=== PATIENT | male | born 1965 | race Hispanic/Latino ===

== ENCOUNTER 2020-11-04 01:33 | Inpatient (IN) | payer BC ==
[2020-11-04 02:59] LABS: Basophils # (Auto) 0.1 K/mm3 (0.0-0.1); Basophils % (Auto) 0.9 % (0.0-1.8); Eosinophils # (Auto) 0.1 K/mm3 (0.0-0.4); Eosinophils % (Auto) 0.6 % (0.0-4.3); Hematocrit 46.1 % (35.5-45.6); Hemoglobin 15.1 gm/dl (11.8-15.2); Lymphocytes # (Auto) 1.8 K/mm3 (1.2-5.4); Lymphocytes % (Auto) 21.3 % (13.4-35.0); Mean Corpuscular HGB Conc 33 % (32-34); Mean Corpuscular Volume 90 fl (84-94); Monocytes # (Auto) 0.9 K/mm3 (0.0-0.8); Monocytes % (Auto) 10.5 % (0.0-7.3); Platelet Count 422 K/mm3 (140-440); Red Blood Count 5.12 M/mm3 (3.65-5.03); Red Cell Distribution Width 15.2 % (13.2-15.2)
[2020-11-04 03:18] LABS: Alanine Aminotransferase 151 units/L (7-56); BUN/Creatinine Ratio 21; Blood Urea Nitrogen 25 mg/dL (9-20); Calcium 9.2 mg/dL (8.4-10.2); Hemolysis Index 6
[2020-11-04 03:38] LABS: Chol/HDL Ratio 3.81 %; HDL Cholesterol 33 mg/dL (40-59); LDL Cholesterol,Direct 84 mg/dL (50-130)
--- NOTE | 2020-11-04 03:40 | XRay Report ---
CHEST 2 VIEWS INDICATION / CLINICAL INFORMATION: LUIGI. Dyspnea FINDINGS: SUPPORT DEVICES: None. HEART / MEDIASTINUM: Mild cardiomegaly. LUNGS / PLEURA: No significant pulmonary or pleural abnormality. No pneumothorax. ADDITIONAL FINDINGS: No significant additional findings. IMPRESSION: Mild cardiomegaly Signer Name: Krunal Magallon MD Signed: 11/04/2020 3:36 AM Workstation Name: [id number]
--- NOTE | 2020-11-04 04:30 | Emergency Department Report ---
ED Shortness of Breath HPI - General Chief Complaint: Dyspnea/Respdistress Stated Complaint: HIGH BP TROUBLE BREATHING SLEEPING Time Seen by Provider: 11/04/20 04:10 Source: patient Mode of arrival: Ambulatory Limitations: No Limitations - History of Present Illness Initial Comments: Patient is a 55-year-old male who presents emergency room with complaints of shortness of breath. Patient states that shortness of breath started but was tolerable. Patient states last 3 days the symptoms have become severe. Patient states he had minimal dyspnea on exertion. Patient states he is unable to walk very far without getting out of breath. Patient denies chest pain. Patient denies headache. Patient states he has high blood pressure. Patient states he recently started metoprolol but did like the side effect so he stopped it. Patient states his blood pressure is extremely high. Patient states he takes blood pressure at home. Patient states blood pressure at home was systolic 200 and diastolic 120. Patient denies fever and chills. Patient denies nausea vomiting. Patient denies blurry vision. Patient denies recent travel. Patient denies recent international travel. Patient denies exposure to the novel coronavirus. Patient denies sick contacts. Patient denies fever and chills. Patient denies cough. Patient denies diarrhea. Patient denies coming in contact with anybody with symptoms of the novel coronavirus. Complaint: shortness of breath -: Sudden, week(s) Severity: severe Consistency: constant Improves With: rest Worsens With: exertion Treatments Prior to Arrival: none - Related Data Home Oxygen Therapy: No Allergies Allergy/AdvReac Type Severity Reaction Status Date / Time No Known Allergies Allergy Verified 11/04/20 04:39 ED Review of Systems ROS: Stated complaint: HIGH BP TROUBLE BREATHING SLEEPING Other details as noted in HPI Constitutional: denies: chills, fever Eyes: denies: eye pain, eye discharge, vision change ENT: denies: ear pain, throat pain Respiratory: see HPI, shortness of breath. denies: cough, wheezing Cardiovascular: as per HPI, dyspnea on exertion. denies: chest pain, palpitations Endocrine: no symptoms reported Gastrointestinal: denies: abdominal pain, nausea, diarrhea Genitourinary: denies: urgency, dysuria Musculoskeletal: denies: back pain, joint swelling, arthralgia Skin: denies: rash, lesions Neurological: denies: headache, weakness, paresthesias Psychiatric: denies: anxiety, depression Hematological/Lymphatic: denies: easy bleeding, easy bruising ED Past Medical Hx - Past Medical History Previous Medical History?: Yes Hx Hypertension: Yes Hx Diabetes: Yes Additional medical history: high cholesterol - Surgical History Past Surgical History?: Yes Hx Appendectomy: Yes Additional Surgical History: tonsils - Family History Family history: no significant - Social History Smoking Status: Never Smoker Substance Use Type: None ED Physical Exam - General Limitations: No Limitations General appearance: alert, in no apparent distress - Head Head exam: Present: atraumatic, normocephalic - Eye Eye exam: Present: normal appearance - ENT ENT exam: Present: mucous membranes moist - Neck Neck exam: Present: normal inspection - Respiratory Respiratory exam: Present: normal lung sounds bilaterally. Absent: respiratory distress, wheezes, rales - Cardiovascular Cardiovascular Exam: Present: regular rate, normal rhythm. Absent: systolic murmur, diastolic murmur, rubs, gallop - GI/Abdominal GI/Abdominal exam: Present: soft, normal bowel sounds - Rectal Rectal exam: Present: deferred - Extremities Exam Extremities exam: Present: normal inspection - Back Exam Back exam: Present: normal inspection - Neurological Exam Neurological exam: Present: alert, oriented X3 - Psychiatric Psychiatric exam: Present: normal affect, normal mood - Skin Skin exam: Present: warm, dry, intact, normal color. Absent: rash ED Course Vital Signs 11/04/20 11/04/20 11/04/20 02:18 04:44 04:50 Temperature 98.0 F Pulse Rate 119 H 116 H Respiratory 20 19 Rate Blood Pressure 206/158 O2 Sat by Pulse 96 99 99 Oximetry 11/04/20 11/04/20 05:00 05:21 Temperature Pulse Rate 110 H 110 H Respiratory 31 H Rate Blood Pressure 195/150 195/150 O2 Sat by Pulse 100 Oximetry - Reevaluation(s) Reevaluation #1: I discussed all results with patient. I discussed plan of care with patient. Patient agrees with plan of care and admission. Patient to be admitted to the hospitalist service. 11/04/20 04:37 Reevaluation #2: Heparin drip ordered. 11/04/20 04:43 Reevaluation #3: Patient's blood pressure is significantly elevated. Patient will be given 5 of Lopressor. 11/04/20 05:13 Reevaluation #4: Patient's blood pressure has improved. 11/04/20 05:52 - Consultations Consultation #1: Hospitalist consulted for admission. Hospitalist to admit patient. 11/04/20 04:37 ED Medical Decision Making - Lab Data Result diagrams: 11/04/20 02:23 11/04/20 02:23 - EKG Data -: EKG Interpreted by Me EKG shows normal: sinus rhythm, axis, intervals, QRS complexes, ST-T waves Rate: tachycardia - EKG Data Interpretation: LVH - Radiology Data Radiology results: report reviewed, image reviewed interpreted by me: Chest x-ray: No pneumonia, no pneumothorax, no foreign body, no osseous findings, no acute findings. Cardiomegaly noted. - Medical Decision Making Patient is 55-year-old male presents emergency room with complaints of shortness of breath initially on exertion. Patient found to have extremely elevated blood pressure consistent with hypertensive urgency. Patient had a chest x-ray which shows cardiomegaly. Patient had an EKG which shows sinus tach and LVH normal ST segment. I personally reviewed the EKG and chest x-ray. Patient had labs done which were essentially unremarkable except for elevated troponin. Due to elevated troponin, the patient was started on heparin protocol and heparin drip. Patient also given aspirin. Patient admitted to the hospital service with patient. Critical care time documented due to the multiple reassessments, prolonged time at the bedside, interpretation of diagnostics and labs. - Differential Diagnosis ACS, shortness of breath, CHF, pneumonia, elevated blood pressure Critical Care Time: Yes Critical care time in (mins) excluding proc time.: 35 Critical care attestation.: If time is entered above; I have spent that time in minutes in the direct care of this critically ill patient, excluding procedure time. Critical Care Time: 35 minutes ED Disposition Clinical Impression: Shortness of breath, Dyspnea on exertion, Elevated troponin, NSTEMI (non-ST elevated myocardial infarction), Hypertensive emergency Disposition: 09 ADMITTED INPATIENT Is pt being admited?: Yes Does the pt Need Aspirin: No Condition: Critical Instructions: Hypertension (ED) Referrals: KYLAH CLAYTON MD [Primary Care Provider] - 3-5 Days Time of Disposition: 04:43
[2020-11-04] MEDS ORDERED: HEPARIN 10,000 UNITS/10 ML VIAL IV ONE (04:35)
[2020-11-04] MEDS ORDERED: ASPIRIN 325 MG TAB PO ONE (04:36)
[2020-11-04] MEDS ORDERED: HEPARIN/ 0.45% NACL DRIP 25,000 UNIT/500 ML BAG IV SCH (05:00)
[2020-11-04] MEDS ORDERED: METOPROLOL TARTRATE 5 MG/5 ML INJ IV ONE (05:13)
[2020-11-04] MEDS ORDERED: ACETAMINOPHEN 325 MG TAB PO PRN (05:29)
[2020-11-04] MEDS ORDERED: ONDANSETRON 4 MG/2 ML INJ IV PRN (05:29)
[2020-11-04] MEDS ORDERED: ALUM-MAG HYDROXIDE-SIMETHICONE 200-200-20MG/5ML ORAL LIQD 30 ML PO PRN (05:29)
[2020-11-04] MEDS ORDERED: MORPHINE 4 MG/1 ML INJ IV PRN (05:29)
[2020-11-04] MEDS ORDERED: SENNOSIDES 8.6 MG TAB PO PRN (05:29)
[2020-11-04] MEDS ORDERED: METOCLOPRAMIDE 10 MG/2 ML INJ IV PRN (05:29)
[2020-11-04] MEDS ORDERED: MAGNESIUM HYDROXIDE (MOM) ORAL LIQD UDC PO PRN (05:29)
[2020-11-04] MEDS ORDERED: IBUPROFEN 600 MG TAB PO PRN (05:29)
[2020-11-04] MEDS ORDERED: oxyCODONE /ACETAMINOPHEN 5-325MG TAB PO PRN (05:29)
[2020-11-04] MEDS ORDERED: NALOXONE 0.4 MG/1 ML INJ IV PRN (05:29)
[2020-11-04] MEDS ORDERED: traZODone 50 MG TAB PO PRN (05:40)
[2020-11-04 05:48] LABS: INR 1.05 (0.87-1.13)
--- NOTE | 2020-11-04 05:48 | History and Physical Report ---
History of Present Illness Date of examination: 11/04/20 Date of admission: 11/04/20 Chief complaint: shortness of breath History of present illness: Patient is patient seen in ED at bedside. Patient is a 55-year-old male he presents to emergency room with chief complaint of shortness of breath. He said the shortness of breath has been ongoing. He reported a history of hypertension but he admits that he has not been compliant with his medication. He said when he checked his blood pressure was not 200 systolic. His shortness of breath has worsened then he decided to come to the hospital. Patient states last 3 days the symptoms have become severe. Patient states he had minimal dyspnea on exertion. Patient states he is unable to walk very far without getting out of breath. Patient denies chest pain. Patient denies headache. Patient states he recently started metoprolol but did like the side effect so he stopped it. Patient states his blood pressure is extremely high. Patient states blood pressure at home was systolic 200 and diastolic 120. Patient denies fever and chills. Patient denies nausea vomiting. Patient denies blurry vision. Patient admits alcohol use but denies tobacco and illicit drug use. Chest x-ray shows mild cardiomegaly. Blood work troponin T is elevatedpatient is on heparin drip and template fitter has been consulted. Past History Past Medical History: diabetes, hypertension, hyperlipidemia Medications and Allergies Allergies Allergy/AdvReac Type Severity Reaction Status Date / Time No Known Allergies Allergy Verified 11/04/20 04:39 Active Meds: Active Medications Acetaminophen (Acetaminophen 325 Mg Tab) 650 mg PO Q4H PRN PRN Reason: Pain MILD(1-3)/Fever >100.5/LEON Al Hydrox/Mg Hydrox/Simethicone (Alum-Mag Hydroxide-Simethicone [id number]/5ml Oral Liqd 30 Ml) 30 ml PO Q4H PRN PRN Reason: Indigestion Atorvastatin Calcium (Atorvastatin 40 Mg Tab) 40 mg PO QHS [facility]EH[facility] Enoxaparin Sodium (Enoxaparin 40 Mg/0.4 Ml Inj) 40 mg SUB-Q QDAY [facility] Famotidine (Famotidine 20 Mg/2 Ml Inj) 20 mg IV BID [facility] Glimepiride (Glimepiride 4 Mg Tab) 4 mg PO QDDIAB ZEHRA Heparin Sodium/Sodium Chloride (Heparin/ 0.45% Nacl-25,000 Unit/500 Ml) 25,000 unit in 500 mls @ 20 mls/hr IV TITRATE [facility]; Protocol Last Admin: 11/04/20 05:02 Dose: 1,000 units/hr, 20 mls/hr Documented by: Ibuprofen (Ibuprofen 600 Mg Tab) 600 mg PO Q6H PRN PRN Reason: Pain, Mild (1-3) Insulin Human Lispro (Insulin Lispro 100 Unit/Ml) 0 unit SUB-Q AC [facility]; Protocol Magnesium Hydroxide (Magnesium Hydroxide (Mom) Oral Liqd Udc) 30 ml PO Q4H PRN PRN Reason: Constipation Metoclopramide HCl (Metoclopramide 10 Mg/2 Ml Inj) 10 mg IV Q6H PRN PRN Reason: Nausea And Vomiting Metoprolol Tartrate (Metoprolol Tartrate 50 Mg Tab) 50 mg PO QDAY [facility]EHRA Metoprolol Tartrate (Metoprolol Tartrate 50 Mg Tab) 50 mg PO BID [facility] Naloxone HCl (Naloxone 0.4 Mg/1 Ml Inj) 0.1 mg IV Q2MIN PRN PRN Reason: Res Rate </= 8 or 02 SAT < 92% Ondansetron HCl (Ondansetron 4 Mg/2 Ml Inj) 4 mg IV Q8H PRN PRN Reason: Nausea And Vomiting Oxycodone/Acetaminophen (Oxycodone /Acetaminophen 5-325mg Tab) 1 tab PO Q6H PRN PRN Reason: Pain, Moderate (4-6) Senna (Sennosides 8.6 Mg Tab) 8.6 mg PO Q12HR PRN PRN Reason: Constipation Sodium Chloride (Sodium Chloride 0.9% 10 Ml Flush Syringe) 10 ml IV BID [facility] Trazodone HCl (Trazodone 50 Mg Tab) 50 mg PO QHS PRN PRN Reason: Insomnia Review of Systems Ears, nose, mouth and throat: no epistaxis, no bleeding gums Cardiovascular: shortness of breath, high blood pressure Gastrointestinal: no melena Genitourinary Male: no incontinence Neurological: no convulsions Psychiatric: no suicidal ideation, no disorientation Hematologic/Lymphatic: no easy bruising, no easy bleeding Exam - Constitutional Vitals: Temp Pulse Resp BP Pulse Ox 98.0 F 110 H 31 H 195/150 100 11/04/20 02:18 11/04/20 05:21 11/04/20 05:00 11/04/20 05:21 11/04/20 05:00 General appearance: Present: no acute distress, mild distress, obese - EENT Eyes: Present: PERRL ENT: hearing intact, clear oral mucosa - Neck Neck: Present: supple, normal ROM - Respiratory Respiratory effort: normal Respiratory: bilateral: CTA - Cardiovascular Heart rate: 111 Heart Sounds: Present: S1 & S2. Absent: rub, click - Extremities Extremities: pulses symmetrical, No edema Peripheral Pulses: within normal limits - Abdominal General gastrointestinal: Present: soft, non-tender, non-distended, normal bowel sounds Male genitourinary: Present: normal - Integumentary Integumentary: Present: clear, warm, dry - Musculoskeletal Musculoskeletal: gait normal, strength equal bilaterally - Psychiatric Psychiatric: appropriate mood/affect, intact judgment & insight - Neurologic Neurologic: CNII-XII intact, moves all extremities - Allied Health Allied health notes reviewed: nursing HEART Score - HEART Score Troponin: Troponin T 0.034 ng/mL (0.00-0.029) H 11/04/20 02:23 Results - Labs CBC & Chem 7: 11/04/20 02:23 11/04/20 02:23 Labs: Abnormal lab results 11/04/20 11/04/20 Range/Units 02:23 02:23 RBC 5.12 H (3.65-5.03) M/mm3 Hct 46.1 H (35.5-45.6) % [place] % (Auto) 10.5 H (0.0-7.3) % [place] # (Auto) 0.9 H (0.0-0.8) K/mm3 Sodium 134 L (137-145) mmol/L BUN 25 H (9-20) mg/dL AST 67 H (5-40) units/L ALT 151 H (7-56) units/L Alkaline Phosphatase 161 H (35-129) units/L Troponin T 0.034 H (0.00-0.029) ng/mL HDL Cholesterol 33 L (40-59) mg/dL Assessment and Plan - Patient Problems (1) Dyspnea on exertion Current Visit: Yes Status: Acute Plan to address problem: Questionable cause Oxygen saturation on room air 98 to 99% As needed oxygen if needed as patient reports he feels better with oxygen on. Antianxiety as needed (2) Hypertensive emergency Current Visit: Yes Status: Acute Plan to address problem: Elevated blood pressure likely secondary to noncompliance Monitor blood pressure Resume home antihypertensive and adjust if needed Hydralazine IV as needed (3) NSTEMI (non-ST elevated myocardial infarction) Current Visit: Yes Status: Acute Plan to address problem: Chest x-ray shows mild cardiomegaly Continue cardioprotective protective measures antiplatelet, BB, statin, and oxygen supplement if needed. Nitro sublingual. Echo ordered and cardiology consult (4) Elevated troponin Current Visit: Yes Status: Acute Plan to address problem: Patient denies chest pain at the time of assessment but admits shortness of breath Trend troponinechocardiogram follow-up with results Cardiology consult (5) Diabetes Current Visit: Yes Status: Acute Plan to address problem: Monitor blood sugar with sliding scale protocol Resume home antihypoglycemia Check hemoglobin A1c (6) Elevated liver enzymes Current Visit: Yes Status: Acute Plan to address problem: Likely secondary to alcohol usepatient admits daily alcohol use Monitor liver enzymes Discussed alcohol use cessation with patient. Complications of alcohol use disorder explained to patient including cirrhosis of the liver/liver cancer Patient voiced understanding (7) DVT prophylaxis Current Visit: Yes Status: Acute Plan to address problem: Subcutaneous Lovenox
[2020-11-04 05:49] LABS: Partial Thromboplastin Time 28.4 Sec. (24.2-36.6)
[2020-11-04] MEDS ORDERED: ALPRAZolam 0.25 MG TAB PO PRN (05:50)
[2020-11-04 06:35] LABS: Creatine Kinase MB 4.2 ng/mL (0.0-4.0)
[2020-11-04] MEDS: INSULIN LISPRO 100 UNIT/ML SUB-Q SCH ×3 (08:00→16:33)
[2020-11-04] MEDS ORDERED: GLIMEPIRIDE 4 MG TAB PO SCH (08:00)
[2020-11-04] MEDS: hydrALAZINE 20 MG/1 ML INJ IV PRN (08:16)
[2020-11-04] MEDS ORDERED: ENOXAPARIN 40 MG/0.4 ML INJ SUB-Q SCH (10:00)
[2020-11-04] MEDS ORDERED: FAMOTIDINE 20 MG/2 ML INJ IV SCH (10:00)
[2020-11-04] MEDS ORDERED: METOPROLOL TARTRATE 50 MG TAB PO SCH (10:00)
--- NOTE | 2020-11-04 10:30 | Electrocardiograph Report ---
[facility] Test Date: 2020-11-04 Test Time: 02:29:40 Pat Name: HERNAN GASTONN Department: Room: [place] [address] Gender: M Continuous Improvement Consultant: : 1965 Requested By: RUPINDER SANTOS III Order Number: [id number] Reading MD: Mukesh Harvey Measurements Intervals [place] Rate: 117 P: 60 [place]: 176 QRS: 71 QRSD: 91 T: -27 QT: 346 QTc: 484 Interpretive Statements Sinus tachycardia Left atrial enlargement Probable left ventricular hypertrophy No previous ECG available for comparison Electronically Signed On 11-04-2020 10:29:50 EDT by Mukesh Harvey
[2020-11-04] MEDS: ASPIRIN EC 81 MG TAB PO SCH (10:39)
[2020-11-04] MEDS: METOPROLOL TARTRATE 50 MG TAB PO SCH ×2 (10:39→21:35)
[2020-11-04] MEDS: LOSARTAN 50 MG TAB PO SCH (10:39)
[2020-11-04] MEDS: APIXABAN 5 MG TAB PO SCH ×2 (10:39→21:36)
--- NOTE | 2020-11-04 12:12 | Consultation ---
History of Present Illness Consult date: 11/04/20 Requesting physician: EDE HAINES Consult reason: hypertension History of present illness: Patient is 55y/o male with a PMHx of HFrEF (25-30%), dialated cardiomyopathy, HTN, Aflutter s/p cardioversion (10/[address] [facility]), DM, and ETOH abuse who presented to the ED with a complaint of SOB and hypertension. He reports that his SOB has been ongoing for several weeks while his BP has been elevated for 2-3 days and that his SOB has become worse in those 2-3 days. He states that his SBP 200 and diastolic 120. He says he started metoprolol several months ago but did not like the side effects and stopped. Patient reports dyspnea on exertions saying he is unable to walk from his car to the front door in the last few days. He further reports lightheadedness, BLE edema, and palpitations. He denies orthopnea, chest pain, nausea, or vomiting. In the ED the patient had elevated BNP 4917 and minimally elevated troponins 0.034-> 0.028. He is previously unknown to our practice. Cardiology has been consulted for HTN. Past History Past Medical History: diabetes, hypertension, hyperlipidemia Past Surgical History: appendectomy Social history: alcohol abuse. denies: smoking, prescription drug abuse Family history: CAD, stroke, other (CHF) Medications and Allergies Allergies Allergy/AdvReac Type Severity Reaction Status Date / Time No Known Allergies Allergy Verified 11/04/20 04:39 Active Meds: Active Medications Acetaminophen (Acetaminophen 325 Mg Tab) 650 mg PO Q4H PRN PRN Reason: Pain MILD(1-3)/Fever >100.5/LEON Al Hydrox/Mg Hydrox/Simethicone (Alum-Mag Hydroxide-Simethicone [id number]/5ml Oral Liqd 30 Ml) 30 ml PO Q4H PRN PRN Reason: Indigestion Apixaban (Apixaban 5 Mg Tab) 5 mg PO Q12HR [facility]; Protocol Last Admin: 11/04/20 10:39 Dose: 5 mg Documented by: Aspirin (Aspirin Ec 81 Mg Tab) 81 mg PO QDAY ZEHRA Last Admin: 11/04/20 10:39 Dose: 81 mg Documented by: Atorvastatin Calcium (Atorvastatin 40 Mg Tab) 40 mg PO QHS [facility]EHRA Furosemide (Furosemide 40 Mg/4 Ml Inj) 40 mg IV 0600,1800 [facility] Hydralazine HCl (Hydralazine 20 Mg/1 Ml Inj) 5 mg IV Q4HR PRN PRN Reason: Hypertension Last Admin: 11/04/20 08:16 Dose: 5 mg Documented by: Insulin Human Lispro (Insulin Lispro 100 Unit/Ml) 0 unit SUB-Q AC [facility]; Protocol Last Admin: 11/04/20 11:33 Dose: Not Given Documented by: Losartan Potassium (Losartan 50 Mg Tab) 50 mg PO QDAY [facility] Last Admin: 11/04/20 10:39 Dose: 50 mg Documented by: Magnesium Hydroxide (Magnesium Hydroxide (Mom) Oral Liqd Udc) 30 ml PO Q4H PRN PRN Reason: Constipation Metoprolol Tartrate (Metoprolol Tartrate 50 Mg Tab) 50 mg PO BID [facility] Last Admin: 11/04/20 10:39 Dose: 50 mg Documented by: Ondansetron HCl (Ondansetron 4 Mg/2 Ml Inj) 4 mg IV Q8H PRN PRN Reason: Nausea And Vomiting Senna (Sennosides 8.6 Mg Tab) 8.6 mg PO Q12HR PRN PRN Reason: Constipation Sodium Chloride (Sodium Chloride 0.9% 10 Ml Flush Syringe) 10 ml IV BID [facility] Last Admin: 11/04/20 10:40 Dose: 10 ml Documented by: Review of Systems ROS unobtainable: due to mental status Constitutional: no weight loss, no weight gain, no fever Ears, nose, mouth and throat: no nasal congestion, no nasal discharge, no sinus pressure, no sinus pain Cardiovascular: palpitations, edema, lightheadedness, shortness of breath, dyspnea on exertion, no chest pain, no orthopnea Respiratory: shortness of breath, dyspnea on exertion, no cough, no cough with sputum, no excessive sputum Gastrointestinal: no abdominal pain, no nausea, no vomiting, no diarrhea Musculoskeletal: no neck pain, no shooting arm pain, no arm numbness/tingling, no low back pain, no shooting leg pain Integumentary: no rash, no pruritis, no redness, no sores Neurological: no head injury, no transient paralysis, no paralysis, no weakness, no headaches Psychiatric: no anxiety, no memory loss Endocrine: no cold intolerance, no heat intolerance Hematologic/Lymphatic: no easy bruising, no easy bleeding Physical Examination Last Vital Signs Temp 98.0 F 11/04/20 02:18 Pulse 106 H 11/04/20 09:01 Resp 24 11/04/20 09:01 BP 154/104 11/04/20 09:01 Pulse Ox 99 11/04/20 09:01 General appearance: no acute distress HEENT: Positive: PERRL Neck: Positive: trachea midline Cardiac: Positive: Regular Rhythm, Tachycardia Lungs: Positive: Normal Breath Sounds Neuro: Positive: Grossly Intact Abdomen: Positive: Soft, Active Bowel Sounds Skin: Negative: Rash, Suspicious Lesions Extremities: Present: upper extr. pulses, lower extr. pulses, +2 Edema Results 11/04/20 02:23 11/04/20 02:23 Cardiac Enzymes 11/04/20 11/04/20 Range/Units 02:23 05:45 AST 67 H (5-40) units/L CK-MB (CK-2) 4.2 H (0.0-4.0) ng/mL Coagulation 11/04/20 Range/Units 04:40 PT 14.3 (12.2-14.9) Sec. INR 1.05 (0.87-1.13) APTT 28.4 (24.2-36.6) Sec. Lipids 11/04/20 Range/Units 02:23 Triglycerides 93 (2-149) mg/dL Cholesterol 126 (50-199) mg/dL HDL Cholesterol 33 L (40-59) mg/dL Cholesterol/HDL Ratio 3.81 % CBC 11/04/20 Range/Units 02:23 WBC 8.7 (4.5-11.0) K/mm3 RBC 5.12 H (3.65-5.03) M/mm3 Hgb 15.1 (11.8-15.2) gm/dl Hct 46.1 H (35.5-45.6) % Plt Count 422 (140-440) K/mm3 Lymph # (Auto) 1.8 (1.2-5.4) K/mm3 [place] # (Auto) 0.9 H (0.0-0.8) K/mm3 Eos # (Auto) 0.1 (0.0-0.4) K/mm3 Baso # (Auto) 0.1 (0.0-0.1) K/mm3 Comprehensive Metabolic Panel 11/04/20 Range/Units 02:23 Sodium 134 L (137-145) mmol/L Potassium 3.9 (3.6-5.0) mmol/L Chloride 99.5 (98-107) mmol/L Carbon Dioxide 22 (22-30) mmol/L BUN 25 H (9-20) mg/dL Creatinine 1.2 (0.8-1.3) mg/dL Glucose 87 (75-100) mg/dL Calcium 9.2 (8.4-10.2) mg/dL AST 67 H (5-40) units/L ALT 151 H (7-56) units/L Alkaline Phosphatase 161 H (35-129) units/L Total Protein 6.9 (6.3-8.2) g/dL Albumin 4.0 (3.9-5) g/dL EKG interpretations - Telemetry EKG Rhythm: Sinus Tachycardia - EKG Sinus rhythms and dysrhythmias: sinus tachycardia Repolarization changes or abnormalities: nonspecific abnormality, ST segment, and/or T wave Assessment and Plan Acute on Chronic systolic and Diastolic dysfunction Hypertensive Emergency * Echo 11/04/2020-EF 25 to 30%, mild left ventricular hypertrophy, right ventricle is mildly hypokinetic, right ventricle is mildly dilated, left atrium mildly dilated, mild aortic regurgitation, trace mitral regurgitation, mild pulmonary hypertension, mild tricuspid regurgitation. * GDMT-asa, BB, DANTE/ARB, Statin * Optimize BP regimen: Metoprolol 50mg PO BID, Losartan 50mg PO QD. Titrate as needed * BNP noted to be elevated and patient has BLE edema. Initiated Lasix 40mg IV BID. BMP in AM NSTEMI type 2 * In setting of Hypertensive Emergency * Patient had mildy elevated troponins that are down trending 0.034->0.028. * EKG showed sinus tachycardia rate 117 with LVH. No acute ischemic changes. AMI ruled out * Plan for ischemic eval as an outpatient H/O aflutter * Patient s/p cardioversion 10/[address] [facility] * Initiated Eliquis for anticoagulation Acute respiratory failure * Patient on NC * Management per primary team ETOH abuse * Management per primary team Optimize BP regimen and continue diuresis Patient seen in conjunction with Dr. Harvey who agrees with this plan of care. Will continue to follow. - Patient Problems (1) Noncompliance Current Visit: Yes Status: Acute (2) ETOH abuse Current Visit: Yes Status: Acute (3) History of atrial flutter Current Visit: Yes Status: Acute (4) Respiratory failure Current Visit: Yes Status: Acute (5) Systolic and diastolic CHF, acute on chronic Current Visit: Yes Status: Acute (6) Shortness of breath Current Visit: Yes Status: Acute (7) Dyspnea on exertion Current Visit: Yes Status: Acute (8) NSTEMI (non-ST elevated myocardial infarction) Current Visit: Yes Status: Acute (9) Hypertensive emergency Current Visit: Yes Status: Acute (10) Diabetes Current Visit: Yes Status: Acute
[2020-11-04 12:24] LABS: Hematocrit 43.6 % (35.5-45.6); Hemoglobin 14.5 gm/dl (11.8-15.2); Mean Corpuscular HGB Conc 33 % (32-34); Mean Corpuscular Volume 90 fl (84-94); Platelet Count 416 K/mm3 (140-440); Red Blood Count 4.85 M/mm3 (3.65-5.03)
[2020-11-04 12:41] LABS: INR 1.17 (0.87-1.13)
[2020-11-04 12:42] LABS: Partial Thromboplastin Time 33.7 Sec. (24.2-36.6)
[2020-11-04] MEDS ORDERED: LORazepam 2 MG/ML VIAL IV PRN ×2 (14:00)
--- NOTE | 2020-11-04 14:02 | Progress Note ---
Assessment and Plan 1. Acute on chronic systolic heart failure Dyspnea on exertion, PND worsening over the last 3 weeks. Has a history of HFrEF with an ejection fraction previously documented (per cardiology record) to be 25 to 30% BNP noted to be elevated patient has bilateral pitting edema 11/04/2020 echo: EF 20 to 30%. Please refer to official read Cardiology consulted GDMTASA, BB, DANTE/ARB, statin Diuresis with Lasix 40 mg IV twice daily 2. Hypertensive emergency Elevated blood pressure on admission 206/158 Antihypertensives as above Hydralazine as needed 3. Type II NSTEMI slightly elevated troponins, troponins 0.034-> 0.028 Likely hypertensive emergency in the setting of chronic heart failure Cardiology recommends ischemic evaluation outpatient 4. History of atrial flutter Status post cardioversion at [facility] in October 2019 Continuous telemetry BB for rate control medication as above Eliquis initiated for anticoagulation 5. Type 2 diabetes mellitus with hyperglycemia Monitor blood sugar AC at bedtime Correctional insulin A1c 9.2 Metformin on discharge 6. Acute hypoxic respiratory failure Was initially on nasal cannula now on room air Saturating in upper 90s throughout encounter 7. Transaminitis -AST 67, ALT 157 Likely secondary to daily alcohol use. Monitor liver enzymes CIWA protocol as below 8. Alcohol abuse Monitor for signs and symptoms of withdrawal CIWA protocol Full code GI prophylaxis: Not indicated DVT prophylaxis: Eliquis Diet: Cardiac Subjective Interval history: No acute complaints on encounter. Patient states that his chest pain and shortness of breath have significantly improved. He is breathing comfortably on room air. Of note patient was at [facility] a year ago for atrial flutter which was treated with cardioversion at the time. He has a history of cardiomyopathy and uncontrolled hypertension which he takes no medication for. He does not follow with a mail messenger outpatient. Objective - Exam Narrative Exam: Physical Exam: Constitutional: Alert, cooperative. No acute distress Head, Ears, Nose: Normocephalic, atraumatic. External ears, nose normal Eyes: Conjunctivae/corneas clear. No icterus. No ptosis. Neck: Supple, no meningeal signs Oral: dentition fair, no thrush Cardiovascular: S1, S2 normal. Respiratory: Good air entry, clear to auscultation bilaterally GI: Soft, non-tender; bowel sounds normal. No peritoneal signs. Musculoskeletal: no cyanosis. Strength 5 out of 5 in all extremities Extremities: 2+ pitting edema in bilateral lower extremities Skin: No rash or abscess, see nursing assessment for full skin exam Hem/Lymphatic: No palpable cervical or supraclavicular nodes. No lymphangitis Psych: Mood ok. Affect normal Neurological: Awake, alert, oriented. No gross abnormality - Constitutional Vitals: Vital Signs - 12hr 11/04/20 11/04/20 11/04/20 02:18 04:44 04:50 Temperature 98.0 F Pulse Rate 119 H 116 H Respiratory 20 19 Rate Blood Pressure 206/158 Blood Pressure [Left] O2 Sat by Pulse 96 99 99 Oximetry 11/04/20 11/04/20 11/04/20 05:00 05:16 05:21 Temperature Pulse Rate 110 H 111 H 110 H Respiratory 31 H 20 Rate Blood Pressure 195/150 195/150 195/150 Blood Pressure [Left] O2 Sat by Pulse 100 98 Oximetry 11/04/20 11/04/20 11/04/20 05:30 05:46 06:46 Temperature Pulse Rate 97 H 98 H 95 H Respiratory 37 H 42 H 25 H Rate Blood Pressure 195/150 157/125 175/130 Blood Pressure [Left] O2 Sat by Pulse 98 97 98 Oximetry 11/04/20 11/04/20 11/04/20 07:00 07:30 08:00 Temperature Pulse Rate 96 H 100 H 98 H Respiratory 24 28 H 22 Rate Blood Pressure 185/131 175/135 185/133 Blood Pressure [Left] O2 Sat by Pulse 94 97 94 Oximetry 11/04/20 11/04/20 11/04/20 08:16 08:31 09:01 Temperature Pulse Rate 104 H 106 H 106 H Respiratory 29 H 24 Rate Blood Pressure 185/133 154/104 Blood Pressure [Left] O2 Sat by Pulse 98 99 Oximetry 11/04/20 11/04/20 11/04/20 09:31 10:01 10:31 Temperature Pulse Rate 109 H 109 H 109 H Respiratory 25 H 24 Rate Blood Pressure 163/109 160/109 163/118 Blood Pressure [Left] O2 Sat by Pulse 96 99 98 Oximetry 11/04/20 11/04/20 11/04/20 11:01 11:31 12:21 Temperature Pulse Rate 110 H 108 H 86 Respiratory 22 Rate Blood Pressure 166/124 168/119 Blood Pressure 167/117 [Left] O2 Sat by Pulse 97 98 98 Oximetry - Labs CBC & Chem 7: 11/04/20 12:10 11/04/20 12:10 Labs: Abnormal lab results 11/04/20 11/04/20 11/04/20 Range/Units 02:23 02:23 02:23 RBC 5.12 H (3.65-5.03) M/mm3 Hct 46.1 H (35.5-45.6) % Turner % (Auto) 10.5 H (0.0-7.3) % Turner # (Auto) 0.9 H (0.0-0.8) K/mm3 PT (12.2-14.9) Sec. INR (0.87-1.13) Heparin Anti-Xa Level (0.3-0.7) U.I./ml Sodium 134 L (137-145) mmol/L BUN 25 H (9-20) mg/dL Hemoglobin A1c (4-6) % AST 67 H (5-40) units/L ALT 151 H (7-56) units/L Alkaline Phosphatase 161 H (35-129) units/L Total Creatine Kinase (55-170) units/L CK-MB (CK-2) (0.0-4.0) ng/mL Troponin T 0.034 H (0.00-0.029) ng/mL NT-Pro-B Natriuret Pep 4917 H (0-900) pg/mL HDL Cholesterol 33 L (40-59) mg/dL 11/04/20 11/04/20 11/04/20 Range/Units 05:43 05:45 12:10 RBC (3.65-5.03) M/mm3 Hct (35.5-45.6) % Turner % (Auto) (0.0-7.3) % Turner # (Auto) (0.0-0.8) K/mm3 PT 15.5 H (12.2-14.9) Sec. INR 1.17 H (0.87-1.13) Heparin Anti-Xa Level 1.17 H (0.3-0.7) U.I./ml Sodium (137-145) mmol/L BUN (9-20) mg/dL Hemoglobin A1c 9.2 H (4-6) % AST (5-40) units/L ALT (7-56) units/L Alkaline Phosphatase (35-129) units/L Total Creatine Kinase 188 H (55-170) units/L CK-MB (CK-2) 4.2 H (0.0-4.0) ng/mL Troponin T (0.00-0.029) ng/mL NT-Pro-B Natriuret Pep (0-900) pg/mL HDL Cholesterol (40-59) mg/dL HEART Score - HEART Score Troponin: Troponin T 0.028 ng/mL (0.00-0.029) 11/04/20 05:45
[2020-11-04] MEDS: FUROSEMIDE 40 MG/4 ML INJ IV SCH (17:36)
[2020-11-05] MEDS: FUROSEMIDE 40 MG/4 ML INJ IV SCH ×2 (05:38→21:49)
[2020-11-05 07:15] LABS: BUN/Creatinine Ratio 16; Blood Urea Nitrogen 19 mg/dL (9-20); Calcium 8.7 mg/dL (8.4-10.2); Hemolysis Index 3
[2020-11-05] MEDS: INSULIN LISPRO 100 UNIT/ML SUB-Q SCH ×4 (10:03→21:50)
[2020-11-05] MEDS: ASPIRIN EC 81 MG TAB PO SCH (10:03)
[2020-11-05] MEDS: METOPROLOL TARTRATE 50 MG TAB PO SCH ×2 (10:03→21:47)
[2020-11-05] MEDS: LOSARTAN 50 MG TAB PO SCH (10:03)
[2020-11-05] MEDS: APIXABAN 5 MG TAB PO SCH ×2 (10:03→21:47)
--- NOTE | 2020-11-05 13:36 | Progress Note ---
Assessment and Plan 1. Acute on chronic systolic heart failure Dyspnea on exertion, PND worsening over the last 3 weeks. Has a history of HFrEF with an ejection fraction previously documented (per cardiology record) to be 25 to 30% BNP noted to be elevated patient has bilateral pitting edema 11/04/2020 echo: EF 20 to 30%. Please refer to official read Cardiology consulted GDMTASA, BB, DANTE/ARB, statin Diuresis with Lasix 40 mg IV twice daily 2. Hypertensive emergency Elevated blood pressure on admission 206/158 Antihypertensives as above Hydralazine as needed 3. Type II NSTEMI slightly elevated troponins, troponins 0.034-> 0.028 Likely hypertensive emergency in the setting of chronic heart failure Cardiology recommends ischemic evaluation outpatient 4. History of atrial flutter Status post cardioversion at [facility] in October 2019 Continuous telemetry BB for rate control medication as above Eliquis initiated for anticoagulation 5. Type 2 diabetes mellitus with hyperglycemia Monitor blood sugar AC at bedtime Correctional insulin A1c 9.2 Metformin on discharge 6. Acute hypoxic respiratory failure Was initially on nasal cannula now on room air Saturating in upper 90s throughout encounter 7. Transaminitis -AST 67, ALT 157 Likely secondary to daily alcohol use. Monitor liver enzymes CIWA protocol as below 8. Alcohol abuse Monitor for signs and symptoms of withdrawal CIWA protocol Full code GI prophylaxis: Not indicated DVT prophylaxis: Eliquis Diet: Cardiac Hospital course to date 11/05/2020: Good diuretic response to Lasix twice daily. Anticipate discharge tomorrow if okay from cardiac standpoint Subjective Interval history: No acute overnight events. Patient states that swelling in lower extremities has significantly reduced for him. He states that he feels better and does not feel short of breath like he did prior to admission. Remainder of ROS negative Objective - Exam Narrative Exam: Physical Exam: Constitutional: Alert, cooperative. No acute distress Head, Ears, Nose: Normocephalic, atraumatic. External ears, nose normal Eyes: Conjunctivae/corneas clear. No icterus. No ptosis. Neck: Supple, no meningeal signs Oral: dentition fair, no thrush Cardiovascular: S1, S2 normal. Respiratory: Good air entry, clear to auscultation bilaterally GI: Soft, non-tender; bowel sounds normal. No peritoneal signs. Musculoskeletal: no cyanosis. Strength 5 out of 5 in all extremities Extremities: 2+ pitting edema in bilateral lower extremities Skin: No rash or abscess, see nursing assessment for full skin exam Hem/Lymphatic: No palpable cervical or supraclavicular nodes. No lymphangitis Psych: Mood ok. Affect normal Neurological: Awake, alert, oriented. No gross abnormality - Constitutional Vitals: Vital Signs - 12hr 11/05/20 11/05/20 11/05/20 01:49 01:51 02:01 Temperature Pulse Rate Respiratory Rate Blood Pressure 121/58 121/58 164/116 O2 Sat by Pulse 100 99 100 Oximetry 11/05/20 11/05/20 11/05/20 02:11 02:20 04:53 Temperature 98.9 F Pulse Rate 104 H Respiratory 18 Rate Blood Pressure 164/116 113/59 159/112 O2 Sat by Pulse 99 99 97 Oximetry 11/05/20 11/05/20 07:57 07:59 Temperature 98.0 F Pulse Rate 107 H Respiratory 18 Rate Blood Pressure 165/108 O2 Sat by Pulse 95 95 Oximetry - Labs CBC & Chem 7: 11/04/20 12:10 11/05/20 04:18 Labs: Abnormal lab results 11/04/20 11/05/20 11/05/20 Range/Units 16:29 04:18 07:57 Glucose 60 L (75-100) mg/dL POC Glucose 118 H 119 H (70-105) mg/dL 11/05/20 Range/Units 11:56 Glucose (75-100) mg/dL POC Glucose 112 H (70-105) mg/dL HEART Score - HEART Score Troponin: Troponin T 0.028 ng/mL (0.00-0.029) 11/04/20 05:45
--- NOTE | 2020-11-05 14:23 | Progress Note ---
Assessment and Plan Accelerated hypertension Acute on Chronic HFrEF 25-30% Elevated LFTs NSTEMI type 2 H/O atrial flutter H/O ETOH abuse * Echo 11/04/2020-EF 25 to 30%, mild left ventricular hypertrophy, right ventricle is mildly hypokinetic, right ventricle is mildly dilated, left atrium mildly dilated, mild aortic regurgitation, trace mitral regurgitation, mild pulmonary hypertension, mild tricuspid regurgitation * Add amlodipine to medication regimen * Plan for ischemic eval as an outpatient * Continue Eliquis for anticoagulation * Optimize BP regimen and continue diuresis Subjective Date of service: 11/05/20 Interval history: Patient sitting up in bed without any complaints. He reports that he feels better than he did in the last 2 weeks. Objective Vital Signs Temp Pulse Resp BP Pulse Ox 11/05/20 07:59 98.0 F 107 H 18 165/108 95 11/05/20 07:57 95 11/05/20 04:53 98.9 F 104 H 18 159/112 97 11/05/20 02:20 113/59 99 11/05/20 02:11 164/116 99 11/05/20 02:01 164/116 100 11/05/20 01:51 121/58 99 11/05/20 01:49 121/58 100 11/05/20 00:08 98 11/04/20 22:40 102 H 35 H 164/116 97 11/04/20 22:34 99 H 40 H 173/117 97 11/04/20 22:31 104 H 36 H 164/116 98 11/04/20 21:35 108 H 174/123 11/04/20 20:31 109 H 32 H 150/99 94 11/04/20 19:49 99 11/04/20 19:01 142/98 93 11/04/20 17:31 95 H 22 147/96 95 11/04/20 17:01 102 H 25 H 171/114 95 11/04/20 16:31 103 H 24 161/107 94 11/04/20 16:01 87 27 H 151/110 94 11/04/20 15:31 98 H 18 155/120 97 11/04/20 14:31 140/104 96 - Physical Examination HEENT: Positive: PERRL Neck: Positive: trachea midline Cardiac: Positive: Regular Rhythm, Tachycardia Lungs: Positive: Normal Exam Neuro: Positive: Grossly Intact Abdomen: Positive: Soft, Active Bowel Sounds Skin: Negative: Rash, Suspicious Lesions Extremities: Present: upper extr. pulses, lower extr. pulses, +2 Edema - Labs and Meds Comprehensive Metabolic Panel 11/05/20 Range/Units 04:18 Sodium 141 D (137-145) mmol/L Potassium 3.7 (3.6-5.0) mmol/L Chloride 100.0 (98-107) mmol/L Carbon Dioxide 30 D (22-30) mmol/L BUN 19 (9-20) mg/dL Creatinine 1.2 (0.8-1.3) mg/dL Glucose 60 L (75-100) mg/dL Calcium 8.7 (8.4-10.2) mg/dL - Imaging and Cardiology Echo: report reviewed (ECHO 10/29: EF 25-30%, mild LVH) - EKG Sinus rhythms and dysrhythmias: sinus tachycardia Repolarization changes or abnormalities: nonspecific abnormality, ST segment, and/or T wave
[2020-11-05] MEDS: amLODIPine 5 MG TAB PO SCH (17:34)
[2020-11-05] MEDS: hydrALAZINE 20 MG/1 ML INJ IV PRN (21:48)
[2020-11-06 06:09] LABS: Hematocrit 41.9 % (35.5-45.6); Mean Corpuscular HGB Conc 34 % (32-34); Mean Corpuscular Volume 89 fl (84-94); Platelet Count 424 K/mm3 (140-440); Red Blood Count 4.69 M/mm3 (3.65-5.03); Red Cell Distribution Width 15.4 % (13.2-15.2)
[2020-11-06 06:16] LABS: Albumin 3.3 g/dL (3.9-5); Bilirubin,Direct 0.3 mg/dL (0-0.2)
--- NOTE | 2020-11-06 08:20 | Discharge Summary ---
Providers - Providers Date of Admission: 11/04/20 05:32 Date of discharge: 11/06/20 Attending physician: JOHNATHAN MARIE MD 11/04/20 05:29 Consult to Physician [CONS] Urgent Comment: Consulting Provider: NIMCO DALTON Physician Instructions: Reason For Exam: HTN Primary care physician: KYLAH CLAYTON Hospitalization Reason for admission: Shortness of breath Condition: Fair Hospital course: 1. Acute on chronic systolic heart failure Dyspnea on exertion, PND worsening over the last 3 weeks. Has a history of HFrEF with an ejection fraction previously documented (per cardiology record) to be 25 to 30% BNP noted to be elevated patient has bilateral pitting edema 11/04/2020 echo: EF 20 to 30%. Please refer to official read Cardiology consulted GDMTASA, BB, DANTE/ARB, statin Diuresis with Lasix 40 mg IV twice daily 2. Hypertensive emergency Elevated blood pressure on admission 206/158 Antihypertensives as above Hydralazine as needed 3. Type II NSTEMI slightly elevated troponins, troponins 0.034-> 0.028 Likely hypertensive emergency in the setting of chronic heart failure Cardiology recommends ischemic evaluation outpatient 4. History of atrial flutter Status post cardioversion at [facility] in October 2019 Continuous telemetry BB for rate control medication as above Eliquis initiated for anticoagulation 5. Type 2 diabetes mellitus with hyperglycemia Monitor blood sugar AC at bedtime Correctional insulin A1c 9.2 Metformin on discharge 6. Acute hypoxic respiratory failure Was initially on nasal cannula now on room air Saturating in upper 90s throughout encounter 7. Transaminitis -AST 67, ALT 157 Likely secondary to daily alcohol use. Monitor liver enzymes CIIN protocol as below 8. Alcohol abuse Monitor for signs and symptoms of withdrawal CIWA protocol Full code GI prophylaxis: Not indicated DVT prophylaxis: Eliquis Diet: Cardiac Hospital course to date 11/05/2020: Good diuretic response to Lasix twice daily. Anticipate discharge tomorrow if okay from cardiac standpoint 11/06/2020: Norvasc added for improved blood pressure control. Discharge order placed. Patient was advised to follow-up with cardiology in 3 to 5 days. Contact information given. Disposition: 01 HOME / SELF CARE / HOMELESS Final Discharge Diagnosis (Prints w/discharge instructions): Acute on chronic systolic heart failure Time spent for discharge: 35 - Discharge Diagnoses (1) Diabetes Status: Acute (2) Dyspnea on exertion Status: Acute (3) ETOH abuse Status: Acute (4) Elevated liver enzymes Status: Acute (5) Elevated troponin Status: Acute (6) History of atrial flutter Status: Acute (7) Hypertensive emergency Status: Acute (8) NSTEMI (non-ST elevated myocardial infarction) Status: Acute (9) Noncompliance Status: Acute (10) Respiratory failure Status: Acute (11) Shortness of breath Status: Acute (12) Systolic and diastolic CHF, acute on chronic Status: Acute Core Measure Documentation - Palliative Care Palliative Care/ Comfort Measures: Not Applicable - Core Measures Any of the following diagnoses?: heart failure - Heart Failure Discharge Requirements DANTE/ARB for LVSD if EF <40%: Yes Beta solo at discharge: Yes Exam - Physical Exam Narrative exam: Physical Exam: Constitutional: Alert, cooperative. No acute distress Head, Ears, Nose: Normocephalic, atraumatic. External ears, nose normal Eyes: Conjunctivae/corneas clear. No icterus. No ptosis. Neck: Supple, no meningeal signs Oral: dentition fair, no thrush Cardiovascular: S1, S2 normal. Respiratory: Good air entry, clear to auscultation bilaterally GI: Soft, non-tender; bowel sounds normal. No peritoneal signs. Musculoskeletal: no cyanosis. Strength 5 out of 5 in all extremities Extremities: 1-2+ pitting edema in bilateral lower extremities, interval improvement Skin: No rash or abscess, see nursing assessment for full skin exam Hem/Lymphatic: No palpable cervical or supraclavicular nodes. No lymphangitis Psych: Mood ok. Affect normal Neurological: Awake, alert, oriented. No gross abnormality - Constitutional Vitals: Temp Pulse Resp BP Pulse Ox 98.4 F 98 H 18 134/106 100 11/06/20 04:07 11/06/20 07:49 11/06/20 04:07 11/06/20 04:07 11/06/20 07:49 Plan Plan of Treatment: Please follow-up with Dr. Fela Dalton in 3 to 5 days as well as your primary care doctor. Her contact info is listed below. Please start the following medications when you leave. We advise you to remain compliant with these medications and not deviate until consulting your manager lan and primary care doctor. Atorvastatin 40 mg p.o. nightly Amlodipine 5 mg p.o. daily Losartan 50 mg p.o. daily Eliquis 5 mg p.o. every 12 hours Aspirin EC 81 mg p.o. daily Furosemide 40 mg p.o. daily Metoprolol 50 mg p.o. twice daily Metformin HCl [address] Leodan Dalton [facility] [address], [place] [address] Follow up with: KYLAH CLAYTON MD [Primary Care Provider] - 3-5 Days NIMCO DALTON MD [Staff Physician] - 7 Days Prescriptions: AtorvaSTATin [Lipitor] 40 mg PO QHS 30 Days #30 tablet amLODIPine 5 mg PO QDAY 30 Days #30 tablet Losartan [Cozaar] 50 mg PO QDAY 30 Days #30 tablet Apixaban [Eliquis] 5 mg PO Q12HR 30 Days #60 tablet Aspirin EC [Halfprin EC] 81 mg PO QDAY 30 Days #30 tablet Furosemide [Lasix TAB] 40 mg PO QDAY 30 Days #30 tablet Metoprolol [Lopressor TAB] 50 mg PO BID 30 Days #60 tablet Metformin HCl [metFORMIN] 500 mg PO DAILY 30 Days #30 solution
[2020-11-06] MEDS: APIXABAN 5 MG TAB PO SCH (10:38)
[2020-11-06] MEDS: amLODIPine 5 MG TAB PO SCH (10:38)
[2020-11-06] MEDS: METOPROLOL TARTRATE 50 MG TAB PO SCH (10:38)
[2020-11-06] MEDS: ASPIRIN EC 81 MG TAB PO SCH (10:38)
[2020-11-06] MEDS: LOSARTAN 50 MG TAB PO SCH (10:38)
[2020-11-06 14:31] VITALS: BP 137/104
== END 2020-11-06 16:24 | disposition home or self-care (01) | DRG 280 ==
LOC: ED 01:33 → 4A 05:32
PROVIDERS: ADMIT Hospitalist; ATTEND Internal Medicine
DX: I11.0 Hypertensive heart disease with heart failure (principal); I21.A1 Myocardial infarction type 2; J96.01 Acute respiratory failure with hypoxia; I16.1 Hypertensive emergency; I50.23 Acute on chronic systolic (congestive) heart failure; I42.0 Dilated cardiomyopathy; E78.00 Pure hypercholesterolemia, unspecified; Z90.49 Acquired absence of other specified parts of digestive tract; Z82.3 Family history of stroke; Z82.49 Family history of ischemic heart disease and other diseases of the circulatory system; F10.10 Alcohol abuse, uncomplicated; Y90.9 Presence of alcohol in blood, level not specified; E11.65 Type 2 diabetes mellitus with hyperglycemia; I08.3 Combined rheumatic disorders of mitral, aortic and tricuspid valves; I27.20 Pulmonary hypertension, unspecified; Z91.19 Patient's noncompliance with other medical treatment and regimen
CPT/HCPCS: 36415; 71046; 80048; 80053; 80061; 80076; 82550; 82553; 82565; 82962; 83036; 83880; 84484; 85014; 85018; 85025; 85027; 85520; 85610; 85730; 86850; 86900; 86901; 93005; 93306; G0378; A9270-GY; J0360; J1644; J1815; J1940